=== PATIENT | female | born 1935 | race Caucasian/White ===

== ENCOUNTER → 2016-10-28 | Outpatient (CLI) | payer MEDICARE ==
--- NOTE | 2016-10-28 10:43 | REP ---
Clinical: Pain primarily involving the first digit. Technique: AP, lateral, bilateral oblique views of the left hand. Findings: Advanced osteoarthritic degenerative changes at the first carpal-metacarpal joint include cortical irregularity, osteophytosis and irregular appearance to the trapezium as well as irregularities at the base of the first metacarpal bone with associated joint space narrowing. Moderate osteoarthritic degenerative changes are also appreciated involving the interphalangeal joints including joint space narrowing, subchondral sclerosis and marginal spurring most notably involving the second digit. No acute fracture dislocation. Impression: Moderate/advanced osteoarthritic degenerative changes primarily involving the first and second carpometacarpal joints and interphalangeal joints. Signed by Rylan Lemus MD 10/28/2016 10:33 A
== END ==
LOC: M WUC 09:46
PROVIDERS: ATTEND Physician Assistant
DX: M25.542 Pain in joints of left hand (principal)

== ENCOUNTER 2018-11-30 08:09 | Day surgery (SDC) | payer MEDICARE ==
[~2018-11-30] VITALS: Ht 160 cm; Wt 88.9 kg
[~2018-11-30 08:09] MED LIST: AMLO10TA PO; ASPI81TA85 PO; ATOR1TAB21 PO; BSS with VANC/TOB/EPI for EYE CASES IR ONE; CALC600T5 PO; CEFUROXIME 1MG/0.1ML INTRACAMERAL INJ As Ordered ONE; CITA20TA6 PO; CYCLOPENTOLATE 2% OPHTH SOLN 2ML BTL OD ONE; FISH1000 PO; GEMF600T5 PO; GLIP5TAB20 PO; HEALON DUET PRO(HEALON 10MG/ML 0.55ML & HEALON ENDOCOAT 30MG/ML 0.85ML) As Ordered ONE; INVO100T PO; LIDOCAINE 1% SDV 5 ML VIAL As Ordered ONE; LIDOCAINE 3.5 % 1ML OPHTH TOPICAL GEL OU ONE; METF-954 PO; METO1TAB7 PO; MIRT1TAB16 PO; OFLOXACIN 0.3 % (OCUFLOX) OPTH SOL 5ML OD ONE; OMEP20CA3 PO; PHENYLEPHRINE 2.5% OPHTH SOL 2ML OD ONE; PHENYLEPHRINE HCL 10 % OPHTH. SOL 5ML OD PRN; POVIDONE-IODINE 5% OPHTH PREP SOL 30ML As Ordered ONE; PROPARACAINE 0.5% OPHTH SOL 15ML OD PRN; TROPICAMIDE 1% OPHTH SOLN 2ML OD ONE; VICT18IN SC
[2018-11-30] MEDS ORDERED: fentaNYL 100 MCG/2 ML INJECTION (J3010) As Ordered ONE (08:13)
[2018-11-30] MEDS ORDERED: MIDAZOLAM INJ 2 MG/2 ML VIAL (J2250) As Ordered ONE (08:13)
[2018-11-30] MEDS ORDERED: HEALON DUET PRO(HEALON 10MG/ML 0.55ML & HEALON ENDOCOAT 30MG/ML 0.85ML) As Ordered ONE (10:13)
[2018-11-30] MEDS ORDERED: METOPROLOL 5 MG/5 ML VIAL As Ordered ONE (10:39)
[2018-11-30] MEDS ORDERED: PROPARACAINE 0.5% OPHTH SOL 15ML As Ordered ONE (11:02)
[2018-11-30] MEDS ORDERED: AcetaZOLAMIDE 500 MG ER CAP As Ordered ONE (11:02)
[2018-11-30 11:05] VITALS: BP 144/70
[2018-11-30] MEDS ORDERED: TRIMETHOBENZAMIDE 300 MG CAP PO PRN (11:15)
[2018-11-30] MEDS ORDERED: ONDANSETRON 4MG/2ML VIAL (J2405) IV PRN (11:15)
[2018-11-30] MEDS ORDERED: AcetaZOLAMIDE 500 MG ER CAP PO ONE (11:15)
[2018-11-30] MEDS ORDERED: KETOROLAC 0.5% OPHTH SOLN OD ONE (11:15)
[2018-11-30] MEDS ORDERED: ACETAMINOPHEN 325 MG TAB PO PRN (12:00)
--- NOTE | 2018-12-01 14:35 | RO ---
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 PROCEDURE: Phacoemulsification with intraocular lens implantation of AU00T0, 23 diopters along with endocyclophotocoagulation and placement of the iStent inject in the left eye times two. SURGEON: Dr. Maricel Cruz. PRE SALES TECHNICAL CONSULTANT: None. ANESTHESIA: COMPLICATION: None. DESCRIPTION OF PROCEDURE: The patient was brought to the operating room and laid in supine position. The eye was prepped and draped in a sterile fashion for ophthalmic surgery. Following which, a lid speculum was placed. A sideport incision was made and EndoCoat was injected into the anterior chamber. A temporal clear corneal incision was made with a 2.5 keratome followed by capsulorrhexis. Hydrodissection was done with balance salt solution and this was followed with phacoemulsification done in a divide and conquer method within the capsular bag. Excess cortical material was then aspirated using irrigation aspiration cannula followed by injection of Healon. Intraocular lens power AU00T0, + 23 diopters was then placed in the capsular bag with placement of Healon in the anterior chamber and the ciliary sulcus to visualize t he ciliary processes on the video screen with the help of the EndoProbe. Endocyclophotocoagulation was then done around 280 degrees at 0.25 mV. Good results were noted as noted by shrinking of the ciliary processes. After the ECP was completed, patient's head was turned away from the surgeon and the microscope towards the surgeon. Healon was injected into the anterior chamber and the angle was visualized with the help of the Gonio lens. iStent Injects were placed nasally at with 2-o'clock hours apart. Good blood reflex was noted. Excess viscoelastic was aspirated. The wound was hydrated. No leaks were noted. Intracameral cefuroxime was given and the patient was returned to the recovery room in stable condition after the lid speculum was removed.
== END 2018-11-30 11:43 | disposition home or self-care (01) ==
LOC: M SDC 08:09
PROVIDERS: ATTEND Ophthalmology
DX: H26.9 Unspecified cataract (principal); H40.9 Unspecified glaucoma; I10 Essential (primary) hypertension; E11.9 Type 2 diabetes mellitus without complications; E78.00 Pure hypercholesterolemia, unspecified; K21.9 Gastro-esophageal reflux disease without esophagitis; G47.33 Obstructive sleep apnea (adult) (pediatric); R06.83 Snoring; Z79.899 Other long term (current) drug therapy; Z79.82 Long term (current) use of aspirin; Z79.84 Long term (current) use of oral hypoglycemic drugs; Z98.51 Tubal ligation status; Z78.0 Asymptomatic menopausal state
CPT/HCPCS: 66183; 66711; 66984; 92015; C1783; J2250; J3010; V2632

== ENCOUNTER 2018-12-09 07:24 | Day surgery (SDC) | payer MEDICARE ==
[~2018-12-09] VITALS: Ht 160 cm; Wt 91.6 kg
[~2018-12-09 07:24] MED LIST changes: +ACETAMINOPHEN 325 MG TAB PO PRN; -CYCLOPENTOLATE 2% OPHTH SOLN 2ML BTL OD ONE; +CYCLOPENTOLATE 2% OPHTH SOLN 2ML BTL OS ONE; -OFLOXACIN 0.3 % (OCUFLOX) OPTH SOL 5ML OD ONE; +OFLOXACIN 0.3 % (OCUFLOX) OPTH SOL 5ML OS ONE; -PHENYLEPHRINE 2.5% OPHTH SOL 2ML OD ONE; +PHENYLEPHRINE 2.5% OPHTH SOL 2ML OS ONE; -PHENYLEPHRINE HCL 10 % OPHTH. SOL 5ML OD PRN; +PHENYLEPHRINE HCL 10 % OPHTH. SOL 5ML OS PRN; -PROPARACAINE 0.5% OPHTH SOL 15ML OD PRN; +PROPARACAINE 0.5% OPHTH SOL 15ML XX PRN; -TROPICAMIDE 1% OPHTH SOLN 2ML OD ONE; +TROPICAMIDE 1% OPHTH SOLN 2ML OS ONE
[2018-12-09] MEDS ORDERED: MIDAZOLAM INJ 2 MG/2 ML VIAL (J2250) As Ordered ONE (07:39)
[2018-12-09] MEDS ORDERED: fentaNYL 100 MCG/2 ML INJECTION (J3010) As Ordered ONE (07:39)
[2018-12-09] MEDS ORDERED: PROPARACAINE 0.5% OPHTH SOL 15ML As Ordered ONE (10:32)
[2018-12-09] MEDS ORDERED: PROPARACAINE 0.5% OPHTH SOL 15ML OS PRN (10:42)
[2018-12-09] MEDS ORDERED: TRIMETHOBENZAMIDE 300 MG CAP PO PRN (10:45)
[2018-12-09] MEDS ORDERED: AcetaZOLAMIDE 500 MG ER CAP PO ONE (10:45)
[2018-12-09] MEDS ORDERED: KETOROLAC 0.5% OPHTH SOLN XX ONE (10:45)
[2018-12-09] MEDS ORDERED: KETOROLAC 0.5% OPHTH SOLN OS ONE (10:45)
[2018-12-09 11:00] VITALS: BP 133/71
--- NOTE | 2018-12-09 12:02 | RO ---
DATE OF PROCEDURE: 12/09/2018 PREPROCEDURE DIAGNOSES: Cataract right eye and glaucoma right eye. POSTPROCEDURE DIAGNOSES: Cataract right eye and glaucoma right eye. PROCEDURE: Phacoemulsification with intraocular lens implantation of AU00T0, 22.5 diopters along with endocyclophotocoagulation and placement of the iStent inject. SURGEON: Dr. Maricel Cruz. ORE TRIMMER: None. ANESTHESIA: COMPLICATION: None. DESCRIPTION OF PROCEDURE: The patient was brought to the operating room and laid in supine position. The eye was prepped and draped in a sterile fashion for ophthalmic surgery, and a lid speculum was placed. A sideport incision was made and EndoCoat was injected into the anterior chamber. A temporal clear corneal incision was made with a 2.5 keratome followed by capsulorrhexis. Hydrodissection was done with balance salt solution and this was followed with phacoemulsification done in a divide and conquer method within the capsular bag followed by the aspirated of the cortical material using irrigation and aspiration cannula. Healon was then placed in the capsular bag. Intraocular lens power AU00T0, + 22.5 diopters was then placed in the capsular bag with placement of Healon in the anterior chamber and the ciliary sulcus to visualize the ciliary processes on the video screen with the help of the EndoProbe. Endocyclophotocoagulation was then done with 280 degrees at 0.25 mV. Good results were noted as seen by shrinking of the ciliary processes on the video screen. The patient was very agitated throughout the procedure and it was difficult for her to hold still. Healon was injected into the anterior chamber to visualize trabecular meshwork under high magnification with the patient's head turned away from the surgeon and the microscope towards the surgeon. With the help of the Gonio lens, iStent Injects were placed 2-o'clock hours apart. At least one iStent Inject could be visualized, the other could not be visualized because of the heme and we were not sure if it was placed. It may have been still in the cartridge. Excess viscoelastic was aspirated. The wound was hydrated. Intracameral cefuroxime was given and at the end of the case, the patient was discharged to the recovery room in stable condition. All the post and intraoperative surgery explained to the patient and the daughter in detail.
== END 2018-12-09 11:10 | disposition home or self-care (01) ==
LOC: M SDC 07:24
PROVIDERS: ATTEND Ophthalmology
DX: H25.9 Unspecified age-related cataract (principal); H40.812 Glaucoma with increased episcleral venous pressure, left eye; I10 Essential (primary) hypertension; E78.5 Hyperlipidemia, unspecified; E11.9 Type 2 diabetes mellitus without complications; K21.9 Gastro-esophageal reflux disease without esophagitis; G47.30 Sleep apnea, unspecified; Z79.82 Long term (current) use of aspirin; Z79.84 Long term (current) use of oral hypoglycemic drugs; Z79.4 Long term (current) use of insulin; Z79.899 Other long term (current) drug therapy
CPT/HCPCS: 66183; 66711; 66984; 92015; C1783; J2250; J3010; V2632

== ENCOUNTER → 2018-12-14 | Outpatient (REF) | payer MEDICARE ==
[~2018-12-14] MED LIST changes: -ACETAMINOPHEN 325 MG TAB PO PRN; -BSS with VANC/TOB/EPI for EYE CASES IR ONE; -CEFUROXIME 1MG/0.1ML INTRACAMERAL INJ As Ordered ONE; -CYCLOPENTOLATE 2% OPHTH SOLN 2ML BTL OS ONE; -HEALON DUET PRO(HEALON 10MG/ML 0.55ML & HEALON ENDOCOAT 30MG/ML 0.85ML) As Ordered ONE; -LIDOCAINE 1% SDV 5 ML VIAL As Ordered ONE; -LIDOCAINE 3.5 % 1ML OPHTH TOPICAL GEL OU ONE; -OFLOXACIN 0.3 % (OCUFLOX) OPTH SOL 5ML OS ONE; -OMEP20CA3 PO; +OMEP20CA4 PO; -PHENYLEPHRINE 2.5% OPHTH SOL 2ML OS ONE; -PHENYLEPHRINE HCL 10 % OPHTH. SOL 5ML OS PRN; -POVIDONE-IODINE 5% OPHTH PREP SOL 30ML As Ordered ONE; -PROPARACAINE 0.5% OPHTH SOL 15ML XX PRN; -TROPICAMIDE 1% OPHTH SOLN 2ML OS ONE
== END ==
LOC: M LAB REF 10:50
PROVIDERS: ATTEND Physician Assistant Medical
DX: H92.12 Otorrhea, left ear (principal)

== ENCOUNTER → 2022-11-18 | Outpatient (CLI) | payer MEDICARE ==
[~2022-11-18] MED LIST changes: -ASPI81TA85 PO; +ASPI81TA86 PO; -CALC600T5 PO; +CALC600T61 PO; +METF-1191 PO; -METF-954 PO; +OMEP1CAP73 PO; -OMEP20CA4 PO
== END ==
LOC: M WUC 12:02
PROVIDERS: ATTEND Nurse Practitioner Family
DX: R07.82 Intercostal pain (principal)

== ENCOUNTER 2023-08-28 18:41 | Observation (INO) | payer MEDICARE ==
[~2023-08-28] VITALS: Ht 160 cm; Wt 79.2 kg
[2023-08-28 19:52] LABS: BASO % 0.3 % (0.0-1.0); EOS # 0.1 10^3/uL (0.0-0.5); EOS % 0.6 % (0.0-3.0); HEMATOCRIT 39.7 % (36.0-47.0); HEMOGLOBIN 13.1 g/dl (12.0-15.5); LYMPH # 0.9 10^3/uL (1.5-5.0); LYMPH % 7.3 % (24.0-44.0); MEAN CORPUSCULAR HEMOGLOBIN 30.9 pg (27.0-33.0); MEAN CORPUSCULAR VOLUME 93.6 fl (80.0-96.0); MONO # 0.7 10^3/uL (0.0-0.8); MONO % 5.5 % (2.0-8.0); NEUTROPHILS # 10.3 10^3/uL (1.5-8.5); NEUTROPHILS % 85.8 % (36.0-66.0); PLATELET COUNT, AUTOMATED 270 10^3/uL (150-450); RED BLOOD COUNT 4.24 10^6/uL (4.00-5.40)
[2023-08-28 20:20] LABS: LIPASE 24 U/L (12-53)
[2023-08-28 20:22] LABS: ALBUMIN 3.9 G/DL (3.2-5.2); ALKALINE PHOSPHATASE 76 U/L (46-116); ALT/SGPT 16 U/L (7.0-40); AST/SGOT 24 U/L (<34); BILIRUBIN,TOTAL < 0.2 MG/DL (0.3-1.2); BLOOD UREA NITROGEN 32 MG/DL (9-23); CARBON DIOXIDE LEVEL 28 MMOL/L (20-31); CHLORIDE LEVEL 103 MMOL/L (98-107); CREATININE FOR GFR 0.87 MG/DL (0.55-1.30); GLOMERULAR FILTRATION RATE > 60.0 (>32); GLUCOSE, FASTING 189 MG/DL (74-106); POTASSIUM SERUM 4.1 MMOL/L (3.5-5.1); SODIUM LEVEL 136 MMOL/L (136-145); TOTAL PROTEIN 6.8 G/DL (5.7-8.2)
[2023-08-28 22:11] LABS: HEMOGLOBIN A1c 6.1 % (4.0-6.0)
[2023-08-28] MEDS ORDERED: D10W/0.45% SODIUM CHLORIDE 1,000 ML IV SCH (22:15)
[2023-08-28] MEDS ORDERED: ASPI-615 PO (22:29)
[2023-08-28] MEDS ORDERED: CELE40TA PO (22:29)
[2023-08-28] MEDS ORDERED: XALA0.007 OU (22:29)
[2023-08-28] MEDS ORDERED: LOPI600T PO (22:29)
[2023-08-28] MEDS ORDERED: NOVOINJ13 SC (22:29)
[2023-08-28] MEDS ORDERED: INSUN SC (22:29)
[2023-08-28] MEDS ORDERED: FISH10002 PO (22:29)
[2023-08-28] MEDS ORDERED: HOME MED LIST COMPLETE! XX SCH (22:45)
[2023-08-29] VITALS (20 sets, daily range): BP systolic 108–158; BP diastolic 57–85; TEMP 97–97.9; O2SAT 90–98
[2023-08-29] MEDS: D5W/0.45% SODIUM CHLORIDE 1,000 ML IV SCH (00:15)
[2023-08-29] MEDS ORDERED: DEXTROSE 50% 50ML SYRINGE IV PRN (00:25)
[2023-08-29] MEDS ORDERED: MOM 30ML SUSPENSION UDC PO PRN (00:25)
[2023-08-29] MEDS ORDERED: GLUCOSE 4GM CHEW TABLET PO PRN (00:25)
[2023-08-29] MEDS ORDERED: MAALOX 30 ML SUSP *UDC PO PRN (00:25)
[2023-08-29] MEDS ORDERED: GLUCAGON INJ 1MG VIAL SC PRN (00:25)
[2023-08-29] MEDS: ACETAMINOPHEN TAB 650MG DOSE (2X325MG) PO PRN (00:46)
[2023-08-29] MEDS: D5W/0.9% SODIUM CHLORIDE 1,000 ML IV SCH (02:41)
[2023-08-29 05:50] LABS: HEMATOCRIT 36.1 % (36.0-47.0); MEAN CORPUSCULAR HEMOGLOBIN 30.7 pg (27.0-33.0); MEAN CORPUSCULAR HGB CONC 33.2 g/dl (32.0-36.5); MEAN CORPUSCULAR VOLUME 92.3 fl (80.0-96.0); PLATELET COUNT, AUTOMATED 256 10^3/uL (150-450); RED BLOOD COUNT 3.91 10^6/uL (4.00-5.40); WHITE BLOOD COUNT 6.7 10^3/uL (4.0-10.0)
[2023-08-29 06:18] LABS: ALBUMIN 3.3 G/DL (3.2-5.2); ALKALINE PHOSPHATASE 70 U/L (46-116); ALT/SGPT 12 U/L (7.0-40); AST/SGOT < 8 U/L (<34); BILIRUBIN,TOTAL 0.2 MG/DL (0.3-1.2); BLOOD UREA NITROGEN 27 MG/DL (9-23); CALCIUM LEVEL 8.8 MG/DL (8.3-10.6); CARBON DIOXIDE LEVEL 26 MMOL/L (20-31); CHLORIDE LEVEL 105 MMOL/L (98-107); CREATININE FOR GFR 0.78 MG/DL (0.55-1.30); GLOMERULAR FILTRATION RATE > 60.0 (>32); GLUCOSE, FASTING 145 MG/DL (74-106); POTASSIUM SERUM 3.8 MMOL/L (3.5-5.1); SODIUM LEVEL 137 MMOL/L (136-145); TOTAL PROTEIN 5.7 G/DL (5.7-8.2)
[2023-08-29] MEDS ORDERED: INSULIN LISPRO (NovoLOG) PER UNIT SC SCH ×2 (07:30→21:00)
[2023-08-29] MEDS: HEPARIN SOD (PORCINE) 5000UNITS/ML 1ML VIAL/SYRINGE SC SCH (10:04)
[2023-08-29] MEDS: OMEPRAZOLE 20MG CAP PO SCH (10:05)
[2023-08-29] MEDS: CitaloPRAM (CeleXA) 20 MG TAB PO SCH (10:05)
[2023-08-29] MEDS: METOPROLOL SUCC (TopROL XL) 50MG **XL** TAB PO SCH (10:05)
[2023-08-29] MEDS: DOCUSATE SODIUM 100MG CAPSULE PO SCH (10:05)
[2023-08-29] MEDS: ATORVASTATIN 20 MG TAB PO SCH (10:05)
[2023-08-29] MEDS: HumuLIN N INSULIN (NovoLIN N) PER UNIT SC SCH (17:51)
[2023-08-29] MEDS: ASPIRIN 81MG ENTERIC TABLET PO SCH (20:16)
[2023-08-29] MEDS: LATANOPROST 0.005% OPHTH SOLN 2.5 ML OU SCH (20:24)
[2023-08-30 05:15] VITALS: BP 117/66; TEMP 97.7; O2SAT 96
[2023-08-30 06:47] LABS: BASO % 0.6 % (0.0-1.0); EOS # 0.1 10^3/uL (0.0-0.5); HEMATOCRIT 38.4 % (36.0-47.0); HEMOGLOBIN 12.7 g/dl (12.0-15.5); LYMPH # 1.7 10^3/uL (1.5-5.0); LYMPH % 37.7 % (24.0-44.0); MEAN CORPUSCULAR HEMOGLOBIN 30.6 pg (27.0-33.0); MEAN CORPUSCULAR HGB CONC 33.1 g/dl (32.0-36.5); MEAN CORPUSCULAR VOLUME 92.5 fl (80.0-96.0); MONO # 0.5 10^3/uL (0.0-0.8); NEUTROPHILS # 2.2 10^3/uL (1.5-8.5); NEUTROPHILS % 48.5 % (36.0-66.0); PLATELET COUNT, AUTOMATED 255 10^3/uL (150-450); RED BLOOD COUNT 4.15 10^6/uL (4.00-5.40); WHITE BLOOD COUNT 4.6 10^3/uL (4.0-10.0)
[2023-08-30 07:09] LABS: BLOOD UREA NITROGEN 23 MG/DL (9-23); CALCIUM LEVEL 8.9 MG/DL (8.3-10.6); CARBON DIOXIDE LEVEL 28 MMOL/L (20-31); CHLORIDE LEVEL 106 MMOL/L (98-107); CREATININE FOR GFR 0.74 MG/DL (0.55-1.30); GLOMERULAR FILTRATION RATE > 60.0 (>32); GLUCOSE, FASTING 73 MG/DL (74-106); POTASSIUM SERUM 4.2 MMOL/L (3.5-5.1); SODIUM LEVEL 139 MMOL/L (136-145)
[2023-08-30 09:00] VITALS: BP 102/48
[2023-08-30] MEDS ORDERED: NOVOINJ13 SC (11:20)
[2023-08-30] MEDS ORDERED: INSUN SC (11:20)
== END 2023-08-30 13:56 | disposition home or self-care (01) ==
LOC: EDBD 18:41 → M ED 18:41 → M ED INP 23:48 → INTOOBSV 23:48 → ENRESERV 08-29 00:37 → M PCU 08-29 02:14 → M MSPAV 08-29 17:58
PROVIDERS: ADMIT Family Medicine; ATTEND Family Medicine
DX: E11.649 Type 2 diabetes mellitus with hypoglycemia without coma (principal); G93.41 Metabolic encephalopathy; R41.0 Disorientation, unspecified; R29.6 Repeated falls; A49.8 Other bacterial infections of unspecified site; H40.9 Unspecified glaucoma; I10 Essential (primary) hypertension; E78.5 Hyperlipidemia, unspecified; G47.30 Sleep apnea, unspecified; H90.6 Mixed conductive and sensorineural hearing loss, bilateral; H72.00 Central perforation of tympanic membrane, unspecified ear; H69.90 Unspecified Eustachian tube disorder, unspecified ear; Z98.41 Cataract extraction status, right eye; Z98.42 Cataract extraction status, left eye; Z90.49 Acquired absence of other specified parts of digestive tract; Z79.899 Other long term (current) drug therapy; Z79.82 Long term (current) use of aspirin; Z79.4 Long term (current) use of insulin; Z82.49 Family history of ischemic heart disease and other diseases of the circulatory system; Z80.9 Family history of malignant neoplasm, unspecified; Z84.1 Family history of disorders of kidney and ureter
CPT/HCPCS: 36415; 70450; 71045; 80048; 80053; 81001; 82140; 83036; 83605; 83690; 83735; 85025; 85027; 87040; 87088; 87186; 87486; 87581; 87633; 87798; 96360; 96361; 96372; 97161; 97165; 97530; 99285; G0378; J1815

== ENCOUNTER 2024-03-16 10:39 | Inpatient (IN) | payer MEDICARE ==
[~2024-03-16] VITALS: Ht 160 cm; Wt 74.6 kg
[~2024-03-16 10:39] MED LIST changes: -BISA10SU PR; -INSU100I14 SQ; -MIRA33506 PO; -SENN-52 PO
[2024-03-16 12:04] LABS: BASO # 0.1 10^3/uL (0.0-0.2); BASO % 0.4 % (0.0-1.0); EOS # 0.1 10^3/uL (0.0-0.5); EOS % 1.1 % (0.0-3.0); HEMATOCRIT 45.7 % (36.0-47.0); HEMOGLOBIN 15.1 g/dl (12.0-15.5); LYMPH # 1.9 10^3/uL (1.5-5.0); LYMPH % 14.9 % (24.0-44.0); MEAN CORPUSCULAR HEMOGLOBIN 30.6 pg (27.0-33.0); MEAN CORPUSCULAR VOLUME 92.7 fl (80.0-96.0); MONO % 8.3 % (2.0-8.0); NEUTROPHILS # 9.4 10^3/uL (1.5-8.5); NEUTROPHILS % 74.9 % (36.0-66.0); PLATELET COUNT, AUTOMATED 345 10^3/uL (150-450); RED BLOOD COUNT 4.93 10^6/uL (4.00-5.40); WHITE BLOOD COUNT 12.6 10^3/uL (4.0-10.0)
[2024-03-16 12:24] LABS: LIPASE 23 U/L (12-53)
[2024-03-16 12:26] LABS: ALBUMIN 4.3 G/DL (3.2-5.2); ALKALINE PHOSPHATASE 90 U/L (46-116); ALT/SGPT 10 U/L (7.0-40); AST/SGOT < 8 U/L (<34); BILIRUBIN,DIRECT 0.2 MG/DL (<0.4); BILIRUBIN,TOTAL 0.5 MG/DL (0.3-1.2); BLOOD UREA NITROGEN 26 MG/DL (9-23); CALCIUM LEVEL 10.5 MG/DL (8.3-10.6); CARBON DIOXIDE LEVEL 29 MMOL/L (20-31); CHLORIDE LEVEL 104 MMOL/L (98-107); CREATININE FOR GFR 0.98 MG/DL (0.55-1.30); GLOMERULAR FILTRATION RATE 57.3 (>32); GLUCOSE, FASTING 119 MG/DL (74-106); POTASSIUM SERUM 4.1 MMOL/L (3.5-5.1); SODIUM LEVEL 137 MMOL/L (136-145); TOTAL PROTEIN 7.4 G/DL (5.7-8.2)
[2024-03-16] MEDS: ACETAMINOPHEN 325 MG TAB PO ONE (14:38)
[2024-03-16] MEDS ORDERED: ISOVUE-370 76% 100ML VIAL As Ordered ONE (14:40)
[2024-03-16] MEDS ORDERED: INSU100I14 SQ (16:49)
[2024-03-16] MEDS ORDERED: HOME MED LIST COMPLETE! XX SCH (16:50)
[2024-03-16] MEDS ORDERED: DEXTROSE 50% 50ML SYRINGE IV PRN (17:40)
[2024-03-16] MEDS ORDERED: GLUCOSE 4 GM CHEW PO PRN (17:40)
[2024-03-16] MEDS ORDERED: MOM 30ML SUSPENSION UDC PO PRN (17:40)
[2024-03-16] MEDS ORDERED: BISACODYL 10MG SUPP PR PRN (17:40)
[2024-03-16] MEDS ORDERED: GLUCAGON INJ 1MG VIAL SC PRN (17:40)
[2024-03-16] MEDS: INSULIN LISPRO (NovoLOG) PER UNIT SC SCH (21:00)
[2024-03-16] MEDS: ASPIRIN 81MG ENTERIC TABLET PO SCH (21:30)
[2024-03-16] MEDS: LATANOPROST 0.005% OPHTH SOLN 2.5 ML OU SCH (21:30)
[2024-03-16] MEDS: SENOKOT S TAB PO SCH (21:30)
[2024-03-16 22:53] VITALS: BP 146/61; TEMP 96.9; O2SAT 98
[2024-03-16 23:09] VITALS: TEMP 97.8
[2024-03-17] VITALS (10 sets, daily range): BP systolic 102–115; BP diastolic 56–59; TEMP 97.1–97.6; O2SAT 89–96
[2024-03-17] MEDS: ACETAMINOPHEN 500 MG TAB PO PRN (00:37)
[2024-03-17] MEDS: NYSTATIN 100,000 UNITS/GM TOPICAL PWD 15GM TOP PRN (00:38)
[2024-03-17 07:25] LABS: BASO % 0.4 % (0.0-1.0); EOS # 0.1 10^3/uL (0.0-0.5); HEMATOCRIT 41.3 % (36.0-47.0); HEMOGLOBIN 13.5 g/dl (12.0-15.5); LYMPH # 1.5 10^3/uL (1.5-5.0); LYMPH % 16.1 % (24.0-44.0); MEAN CORPUSCULAR HEMOGLOBIN 30.3 pg (27.0-33.0); MEAN CORPUSCULAR HGB CONC 32.7 g/dl (32.0-36.5); MEAN CORPUSCULAR VOLUME 92.8 fl (80.0-96.0); MONO # 0.8 10^3/uL (0.0-0.8); MONO % 8.8 % (2.0-8.0); NEUTROPHILS # 6.6 10^3/uL (1.5-8.5); NEUTROPHILS % 73.1 % (36.0-66.0); PLATELET COUNT, AUTOMATED 252 10^3/uL (150-450); RED BLOOD COUNT 4.45 10^6/uL (4.00-5.40)
[2024-03-17] MEDS: INSULIN LISPRO (NovoLOG) PER UNIT SC SCH (07:30)
[2024-03-17 07:42] LABS: BLOOD UREA NITROGEN 21 MG/DL (9-23); CALCIUM LEVEL 9.2 MG/DL (8.3-10.6); CARBON DIOXIDE LEVEL 26 MMOL/L (20-31); CHLORIDE LEVEL 105 MMOL/L (98-107); CREATININE FOR GFR 0.72 MG/DL (0.55-1.30); GLOMERULAR FILTRATION RATE > 60.0 (>32); GLUCOSE, FASTING 102 MG/DL (74-106); POTASSIUM SERUM 3.9 MMOL/L (3.5-5.1); SODIUM LEVEL 135 MMOL/L (136-145)
[2024-03-17] MEDS: MIRALAX *UNIT DOSE* 17GM PACKET PO SCH (08:03)
[2024-03-17] MEDS: OMEPRAZOLE 20MG CAP PO SCH (08:07)
[2024-03-17] MEDS: CitaloPRAM (CeleXA) 20 MG TAB PO SCH (08:08)
[2024-03-17] MEDS: ATORVASTATIN 20 MG TAB PO SCH (08:09)
[2024-03-17] MEDS: ENOXAPARIN 40MG/0.4ML SYRINGE (J1650 PER 10MG) SC SCH (08:09)
[2024-03-17] MEDS: METOPROLOL SUCC (TopROL XL) 50MG **XL** TAB PO SCH (08:10)
[2024-03-17] MEDS: BISACODYL 10MG SUPP PR SCH (10:36)
[2024-03-17] MEDS: ACETAMINOPHEN 325 MG TAB PO PRN (10:36)
[2024-03-17] MEDS ORDERED: BISA10SU PR (13:19)
[2024-03-17] MEDS ORDERED: MIRA33506 PO (13:19)
[2024-03-17] MEDS ORDERED: SENN-52 PO (13:19)
== END 2024-03-17 14:51 | disposition home or self-care (01) | DRG 395 ==
LOC: M ED 10:39 → M ED INP 10:40 → M MS4PR 22:56 → OBSVTOIN 03-17 11:02
PROVIDERS: ADMIT Internal Medicine; ATTEND Internal Medicine
DX: K43.0 Incisional hernia with obstruction, without gangrene (principal); I10 Essential (primary) hypertension; E78.5 Hyperlipidemia, unspecified; E11.9 Type 2 diabetes mellitus without complications; K21.9 Gastro-esophageal reflux disease without esophagitis; G47.33 Obstructive sleep apnea (adult) (pediatric); F41.9 Anxiety disorder, unspecified; H40.9 Unspecified glaucoma; H90.6 Mixed conductive and sensorineural hearing loss, bilateral; Z66 Do not resuscitate; Z90.49 Acquired absence of other specified parts of digestive tract; Z98.41 Cataract extraction status, right eye; Z98.42 Cataract extraction status, left eye; K59.00 Constipation, unspecified; Z79.82 Long term (current) use of aspirin; Z79.4 Long term (current) use of insulin; Z79.899 Other long term (current) drug therapy

== ENCOUNTER → 2024-03-16 | Outpatient (CLI) | payer MEDICARE ==
[~2024-03-16] MED LIST changes: +ASPI-615 PO; +BISA10SU PR; +CELE40TA PO; +FISH10002 PO; +INSU100I14 SQ; +INSUN SC; +LOPI600T PO; +MIRA33506 PO; +NOVOINJ13 SC; +SENN-52 PO; +XALA0.007 OU
== END ==
LOC: M WUC 10:01
PROVIDERS: ATTEND Nurse Practitioner Family
DX: R30.0 Dysuria (principal); R10.84 Generalized abdominal pain

== ENCOUNTER → 2024-04-09 | Outpatient (REF) | payer MEDICARE ==
[~2024-04-09] MED LIST changes: +BISA10SU PR; +INSU100I14 SQ; +MIRA33506 PO; +SENN-52 PO
== END ==
LOC: M LAB REF 16:06
PROVIDERS: ATTEND Nurse Practitioner Family
DX: R30.0 Dysuria (principal)

== ENCOUNTER 2024-05-11 06:18 | Day surgery (SDC) | payer MEDICARE ==
[~2024-05-11] VITALS: Ht 160 cm; Wt 74.4 kg
[~2024-05-11 06:18] MED LIST changes: +ACET-683 PO; +AMLO1TAB25 PO; +CITA40TA7 PO; +KP F1200 PO; +OMEP-173 PO; +RA K500C PO
[2024-05-11] MEDS ORDERED: GLUCAGON INJ 1MG VIAL SC PRN (06:35)
[2024-05-11] MEDS ORDERED: DEXTROSE 50% 50ML SYRINGE IV PRN (06:35)
[2024-05-11] MEDS ORDERED: INSULIN LISPRO (NovoLOG) PER UNIT SC PRN (06:35)
[2024-05-11] MEDS ORDERED: GLUCOSE 4 GM CHEW PO PRN (06:35)
[2024-05-11] MEDS ORDERED: propofoL 200 MG/20 ML VIAL As Ordered ONE (07:06)
[2024-05-11] MEDS ORDERED: ACETAMINOPHEN 1000MG/100ML IV BAG As Ordered ONE (07:06)
[2024-05-11] MEDS ORDERED: LIDOCAINE 2% 100MG/5ML SDV (FOR ANES.) As Ordered ONE (07:06)
[2024-05-11] MEDS ORDERED: ETOMIDATE INJ 20MG/10ML VIAL As Ordered ONE (07:06)
[2024-05-11] MEDS ORDERED: ONDANSETRON 4MG 2ML VIAL As Ordered ONE (07:06)
[2024-05-11] MEDS ORDERED: SUGAMMADEX SODIUM 500 MG/5 ML VIAL (BRIDION) As Ordered ONE (07:06)
[2024-05-11] MEDS ORDERED: ROCURONIUM BROMIDE 50MG/5ML VIAL As Ordered ONE (07:06)
[2024-05-11] MEDS ORDERED: fentaNYL 100 MCG/2 ML INJECTION As Ordered ONE (07:07)
[2024-05-11] MEDS: ceFAZolin SOD 2 GM in IV 1 EA IV ONE (07:50)
[2024-05-11] MEDS ORDERED: GLYCOPYRROLATE INJ 0.2 MG/ML 2 ML VIAL As Ordered ONE (08:23)
[2024-05-11] MEDS ORDERED: METOCLOPRAMIDE INJ 10MG/2ML VIAL IV PRN (10:00)
[2024-05-11] MEDS ORDERED: HYDROMORPHONE HCL 0.5 MG/ 0.5 ML SYRINGE IV PRN (10:00)
[2024-05-11] MEDS ORDERED: diphenhydrAMINE 50MG/ML VIAL IV PRN (10:00)
[2024-05-11] MEDS ORDERED: fentaNYL 100 MCG/2 ML INJECTION IV PRN (10:00)
[2024-05-11] MEDS ORDERED: ONDANSETRON 4MG 2ML VIAL IV PRN (10:00)
[2024-05-11] MEDS ORDERED: MEPERIDINE 25 MG/ML 1ML VIAL IV PRN (10:00)
[2024-05-11] MEDS ORDERED: NS 1,000 ML IV SCH (10:15)
[2024-05-11] MEDS ORDERED: traMADol 50 MG TAB PO PRN (10:15)
[2024-05-11] MEDS ORDERED: KETOROLAC 30 MG/ML 1ML VIAL IV ONE (10:30)
[2024-05-11] MEDS: KETOROLAC 30 MG/ML 1ML VIAL IV ONE (11:00)
[2024-05-11] MEDS: oxyCODONE 5MG TAB PO PRN (11:06)
[2024-05-11 13:15] VITALS: BP 118/55; TEMP 98; O2SAT 95
== END 2024-05-11 13:20 | disposition home or self-care (01) ==
LOC: M SDC 06:18
PROVIDERS: ATTEND Surgery
DX: K43.2 Incisional hernia without obstruction or gangrene (principal); K66.0 Peritoneal adhesions (postprocedural) (postinfection); G47.30 Sleep apnea, unspecified; Z79.899 Other long term (current) drug therapy
CPT/HCPCS: 49615; C1781; C9290; J0131; J0665; J0690; J1100; J1596; J1885; J2405; J3010; S2900

== ENCOUNTER → 2025-03-14 | Outpatient (CLI) | payer MEDICARE ==
[~2025-03-14] MED LIST changes: +AMLO-751 PO; -AMLO10TA PO; +GLIP-318 PO; -GLIP5TAB20 PO
== END ==
LOC: M WUC 08:24
PROVIDERS: ATTEND Physician Assistant
DX: M79.642 Pain in left hand (principal)

== ENCOUNTER → 2025-03-23 | Outpatient (REF) | payer MEDICARE | LOC: M LAB REF 16:51 | PROVIDERS: ATTEND Student in an Organized Health Care Education/Training Program | DX: R30.0 Dysuria (principal) ==

== ENCOUNTER → 2025-04-04 | Outpatient (CLI) | payer MEDICARE | LOC: M WUC 10:25 | PROVIDERS: ATTEND Nurse Practitioner Family | DX: M25.511 Pain in right shoulder (principal); M75.101 Unspecified rotator cuff tear or rupture of right shoulder, not specified as traumatic ==